=== PATIENT | male | born 1995 | race Caucasian/White ===

== ENCOUNTER 2018-04-06 23:14 | Emergency (ER) | payer BC ==
[2018-04-06 23:21] VITALS: TEMP 97
[2018-04-06] MEDS ORDERED: SODIUM CHLORIDE 0.9% 1,000 ML IV STA (23:51)
[2018-04-06] MEDS ORDERED: ONDANSETRON 4 MG/2 ML VIAL IVP STA (23:52)
[2018-04-07 00:43] VITALS: BP 100/51; PULSE 68; RESP 18
--- NOTE | 2018-04-07 01:02 | ED ---
General Adult HPI - General Chief complaint: Alcohol Stated complaint: nausea Time Seen by Provider: 04/06/18 23:22 Source: patient, EMS Mode of arrival: EMS Limitations: no limitations, language barrier - History of Present Illness Initial comments: Patient is a 23-year-old male presenting for nausea and vomiting. Patient states that his in-laws are getting and he was celebrating had 3-1/2 shots of tequila. Shortly thereafter, he had 3-4 episodes of nausea and vomiting. However, he denies any abdominal pain states that relates to nausea the patient come to the emergency department. - Related Data Previous Rx's Medication Instructions Recorded Ondansetron Odt [Zofran Odt] 4 mg PO Q8HR PRN #15 tab 04/07/18 Allergies Allergy/AdvReac Type Severity Reaction Status Date / Time No Known Allergies Allergy Verified 04/06/18 23:21 Review of Systems ROS Statement: Those systems with pertinent positive or pertinent negative responses have been documented in the HPI. Constitutional: Negative for chills, fatigue and fever. HENT: Negative for congestion. Respiratory: Negative for chest tightness, shortness of breath and wheezing. Negative for cough Cardiovascular: Negative for chest pain and palpitations. Gastrointestinal: Negative for abdominal pain. Negative for abdominal distention , diarrhea, positive for nausea and vomiting. Genitourinary: Negative for dysuria. Musculoskeletal: Negative for back pain, neck pain and neck stiffness. Skin: Negative for color change. Neurological: Negative for dizziness, speech difficulty, weakness and light- headedness. Psychiatric/Behavioral: Negative for agitation and confusion. Negative for anxiety ROS Other: All systems not noted in ROS Statement are negative. Past Medical History Additional Past Medical History / Comment(s): pyloric stenosis History of Any Multi-Drug Resistant Organisms: None Reported Additional Past Surgical History / Comment(s): pyloromyotomy Past Psychological History: No Psychological Hx Reported Smoking Status: Current every day smoker Past Alcohol Use History: Occasional Past Drug Use History: Marijuana General Exam - General Exam Comments Initial Comments: Constitutional: Pt is oriented to person, place, and time. Pt appears well- developed and well-nourished. No distress. HENT: Head: Normocephalic and atraumatic. Eyes: EOM are normal. Neck: Normal range of motion. Neck supple. Cardiovascular: Normal rate, regular rhythm, S1 normal, S2 normal and normal heart sounds. Exam reveals no gallop and no friction rub. No murmur heard. Pulmonary/Chest: Effort normal and breath sounds normal. No tachypnea and no bradypnea. No respiratory distress. No wheezes or rales noted. Abdominal: Soft. Bowel sounds are normal. Pt exhibits no shifting dullness, no distension, no pulsatile liver, no fluid wave, no abdominal bruit and no ascites. There is no tenderness. There is no rigidity, no rebound, no guarding, no tenderness at McBurney's point and negative Singer's sign. Musculoskeletal: Normal range of motion. Neurological: Pt is alert and oriented to person, place, and time. No cranial nerve deficit. Skin: Skin is warm and dry. No rash noted. Pt is not diaphoretic. No erythema. No pallor. Psychiatric: Pt has a normal mood and affect. Pt behavior is normal. Thought content normal. Limitations: no limitations, language barrier Course Vital Signs 04/06/18 04/07/18 23:17 00:40 Temperature 97 F L Pulse Rate 60 68 Respiratory 16 18 Rate Blood Pressure 132/74 100/51 O2 Sat by Pulse 98 95 Oximetry Medical Decision Making - Medical Decision Making Because the patient did not have any abdominal pain and the vomiting appear to be induced by alcohol intake, it was not felt that laboratory studies were indicated specialist since vital signs were within normal limits. The patient was given 2 L of normal saline and Zofran and stated that the symptoms had completely resolved.Explained that we will discharge the patient home and patient is to follow up with PCP in 1-2 days and return to the ED if symptoms worsen. Pt is agreeable to plan. Disposition Clinical Impression: Nausea and vomiting Disposition: HOME SELF-CARE Condition: Good Instructions: Acute Nausea and Vomiting (ED) Prescriptions: Ondansetron Odt [Zofran Odt] 4 mg PO Q8HR PRN #15 tab PRN Reason: Nausea And Vomiting Is patient prescribed a controlled substance at d/c from ED?: No Referrals: None,Stated [Primary Care Provider] - 1-2 days
== END 2018-04-07 01:28 | disposition home or self-care (01) ==
LOC: EC 23:14
DX: R11.2 Nausea with vomiting, unspecified (principal); F17.200 Nicotine dependence, unspecified, uncomplicated
CPT/HCPCS: 82075; 99284; 96374; 96361; J2405